=== PATIENT | female | born 1990 | race Caucasian/White ===

== ENCOUNTER 2021-11-11 19:03 | Emergency (ER) | payer BC ==
[~2021-11-11] VITALS: Ht 157.5 cm; Wt 54.4 kg
[2021-11-11 19:17] VITALS: BP 131/77
--- NOTE | 2021-11-11 19:23 | NUR ---
Patient being evaluated by DAVID GARCIA at TRIAGE ROOM.
[2021-11-11] MEDS ORDERED: LIDOCAINE/EPI MPF 1%1:200000 30 ML VIAL INJ ONE (20:00)
--- NOTE | 2021-11-11 20:27 | NUR ---
PT RETURN FROM CT TO ER LOBBY
--- NOTE | 2021-11-11 20:38 | NUR ---
PT TAKEN TO BED 6
--- NOTE | 2021-11-11 21:08 | NUR ---
Dr. Goss examining patient.
--- NOTE | 2021-11-11 21:10 | NUR ---
Patient has a 2 cm laceration to mid head. Dr. Goss applied gely using sterile technique. Edges well approximated. Site cleansed with NSS. No bleeding noted. Pt tolerated well.
[2021-11-11] MEDS ORDERED: ACET-10509 PO (21:22)
[2021-11-11 21:42] VITALS: BP 125/51
== END 2021-11-11 21:42 | disposition home or self-care (01) ==
LOC: MED 19:03
DX: S01.01XA Laceration without foreign body of scalp, initial encounter (principal); Z79.1 Long term (current) use of non-steroidal anti-inflammatories (NSAID); Z88.8 Allergy status to other drugs, medicaments and biological substances; X58.XXXA Exposure to other specified factors, initial encounter; Y93.89 Activity, other specified; Y92.89 Other specified places as the place of occurrence of the external cause; Y99.8 Other external cause status
CPT/HCPCS: 12011; 70450; 99284; J2001

== ENCOUNTER 2021-11-21 17:59 | Emergency (ER) | payer BC ==
[~2021-11-21] VITALS: Ht 157.5 cm; Wt 54.0 kg
[~2021-11-21 17:59] MED LIST: ACET-10509 PO
[2021-11-21 18:13] VITALS: BP 130/71
--- NOTE | 2021-11-21 18:43 | NUR ---
DAVID GARCIA AT PT SIDE FOR STAPLE REMOVAL
--- NOTE | 2021-11-21 19:00 | NUR ---
31 Y/O FEMALE BIB SELF PRESENTS TO THE ED FOR STAPLE REMOVAL, NOTED 2 ISAI ON THE RIGHT SCALP. AREA APPEARS CLEAN AND DRY, DENIES PAIN. ISAI DONE ON 11/11/21 ALLERGY: GABAPENTIN, NAPROXEN PMH: BRAIN TUMOR (NO INTERVENTIONS AT THE MOMENT)
[2021-11-21 19:04] VITALS: BP 130/71
--- NOTE | 2021-11-21 19:04 | NUR ---
Patient discharged with v/s stable. Written and verbal after care instructions ABOUT ISAI, ADHESIVE WOUND CLOSURE given and explained. Patient verbalized understanding. Ambulatory with steady gait. All questions addressed prior to discharge. Advised to follow up with PMD.
== END 2021-11-21 19:04 | disposition home or self-care (01) ==
LOC: MED 17:59
DX: S01.01XD Laceration without foreign body of scalp, subsequent encounter (principal); Z48.02 Encounter for removal of sutures; Z79.1 Long term (current) use of non-steroidal anti-inflammatories (NSAID); Z88.8 Allergy status to other drugs, medicaments and biological substances; X58.XXXD Exposure to other specified factors, subsequent encounter
CPT/HCPCS: 99281